=== PATIENT | male | born 2000 | race Caucasian/White ===

== ENCOUNTER 2024-02-25 10:51 | Emergency (ER) | payer OTHER, SELFPAY ==
[2024-02-25 10:52] VITALS: BP 152/92; PULSE 78; RESP 16; TEMP 36.7; O2SAT 97; BMI 27.0
--- NOTE | 2024-02-25 11:11 | US_ITS ---
STUDY: SCROTUM ULTRASOUND REASON FOR EXAM: Male, 23 years old. left testicle pain TECHNIQUE: Ultrasound evaluation of the scrotum was performed with color Doppler and static johnson-scale imaging. COMPARISON: None. FINDINGS: RIGHT TESTICLE INTRATESTICULAR: There is a normal size of the right testicle. The right testicle measures 5.1 x 3.6 x 2.6 cm. There is a heterogeneous echotexture. There is normal arterial and normal venous vascularity. There is no demonstrated right testicular mass or cyst. EXTRATESTICULAR: The epididymis is normal in size. The epididymis head measures 1.2 x 1.0 x 1.3 cm. There is normal vascularity of the epididymis. There is no demonstrated epididymal cystic structure. There is no demonstrated hydrocele. There is no demonstrated varicocele. There is no demonstrated extratesticular mass or cyst. LEFT TESTICLE INTRATESTICULAR: There is a normal size of the left testicle. The left testicle measures 4.5 x 3.9 x 2.4 cm. There is a heterogeneous echotexture. There is normal arterial and normal venous vascularity. There is no demonstrated left testicular mass or cyst. EXTRATESTICULAR: The epididymis is normal in size. The epididymis head measures 1.2 x 1.5 x 0.8 cm. There is normal vascularity of the epididymis. There is no demonstrated epididymal cystic structure. There is a small hydrocele. There is no demonstrated varicocele. There is no demonstrated extratesticular mass. A small simple cyst is present just to the right of midline in the left testicle measuring 1.6 mm in diameter. The echotexture of the bilateral epididymal tissue is diffusely heterogeneous and likely due to prior inflammation or infection. US/Testicular with Arterial Flow IMPRESSION: 1. Findings compatible with sequela of prior and chronic epididymoorchitis = Diffusely heterogeneous echotexture of the bilateral testicles and epididymal tissue likely sequela of prior inflammatory or infectious orchitis not otherwise specified. 2. Small left testicular hydrocele 3. Stable tiny 1.6 mm left testicular cyst of doubtful clinical significance. No mass or suspicious process is present Electronically Signed: Alexander Méndez MD at 13:19 EDT ,
--- NOTE | 2024-02-25 11:11 | CT_ITS ---
STUDY: CT ABDOMEN AND PELVIS WITHOUT CONTRAST REASON FOR EXAM: Male, 23 years old. Left lower abdomen pain TESTICULAR PAIN X5 DAYS RADIATION DOSAGE (If Supplied By Facility): CTDIvol = ( 6.25 ) mGy, DLP = ( 356.27 ) mGycm TECHNIQUE: Transaxial images were obtained from the dome of the diaphragm to the symphysis pubis without oral contrast, and without intravenous contrast. Sagittal and coronal images were reconstructed. Individualized dose optimization techniques were used for this CT. COMPARISON: None. FINDINGS: The visualized lung bases are unremarkable. The visualized portions of the heart are within normal limits. Normal liver. Normal gallbladder and extrahepatic biliary system. Normal spleen. Normal pancreas. Normal bilateral adrenal glands. Normal right kidney. Normal left kidney. No hydronephrosis or radiopaque kidney stones are present. No visualized hydroureter. No bowel dilatation or bowel wall thickening or evidence of obstruction. No free air or free fluid is present. No visualized inflammatory stranding. Normal visualized stomach. Normal small intestine. Normal colon. The appendix is visualized and appears normal. Normal abdominal aorta. Normal inferior vena cava. Normal retroperitoneum. Normal urinary bladder. Normal abdominal wall. Normal osseous structures. A small calcification is present at the periphery of the left testicle. Testicular ultrasound can be performed to evaluate the structures in the scrotal sac. CT/Abdomen/Pelvis without Cont IMPRESSION: 1. Normal unenhanced CT of the abdomen and pelvis. 2. A small calcification is present at the periphery of the left testicle. Testicular ultrasound can be performed to evaluate the structures in the scrotal sac. Electronically Signed: Alexander Méndez MD at 11:51 EDT ,
--- NOTE | 2024-02-25 11:12 | EDS_ITS ---
HPI History of Present Illness Chief Complaint: Male Pain/Injury Detail of Chief Complaint: Left testicle pain Informant: patient Narrative Narrative: Patient presents the emergency department complaint of testicular pain. Patient states initially he noticed the discomfort about 5 days ago. Patient denies any penile discharge. He denies urinary symptoms. Patient states the pain was more severe last evening and was also in his lower abdomen. He had some nausea last night but no vomiting. He denies any fevers or chills or sweats. He denies any trauma to his testicles. No history of kidney stones. He is and monogamous. Patient was seen in urgent care and referred to the emergency department for concern for a testicular torsion. PFSH PFS Home Medications sulfamethoxazole 800 mg-trimethoprim 160 mg tablet (Bactrim DS) 1 tab PO BID #14 tabs 02/25/24 [Rx Last Taken Unknown] Allergy/AdvReac Type Severity Reaction Status Date / Time No Known Allergies Allergy Verified 02/25/24 10:54 Social History Smoking Status: Never smoker ROS ROS ED Review of Systems ROS Unobtainable: other Constitutional Constitutional ED: Reports lethargy; Denies chills, fever(s), sweats or weight loss Eyes Eyes: Denies blurry vision, change in vision or diplopia ENT ENT ED: Denies rhinorrhea or sore throat Cardiovascular Cardiovascular: Denies chest pain, orthopnea or racing heartbeat Respiratory/Chest Respiratory/Chest: Denies cough, dyspnea, dyspnea on exertion, orthopnea or sputum Gastrointestinal Gastrointestinal: Reports abdominal pain; Denies diarrhea, nausea or vomiting Genitourinary Genitourinary ED: Reports other Details: Testicular pain ; Denies dysuria, hematuria or urinary frequency Musculoskeletal Musculoskeletal: Denies arthralgias, back pain, myalgias or neck pain Integumentary Denies abscess, Abrasions or rash Neurologic Neurologic: Denies headache(s) or weakness Psychiatric Psychiatric: Denies anxiety, depression or suicidal thoughts Endocrine Endocrinology: Denies polydipsia, polyphagia or polyuria Hematologic/Lymphatic Hematologic/Lymphatic: Denies easy bleeding, easy bruising or lymphadenopathy Allergic/Immunologic Allergic/Immunologic ED: Denies mouth swelling, tongue swelling or urticaria EXAM Physical Exam Const Vital Signs: 02/25/24 10:52 02/25/24 12:22 Temperature 98.0 F 97 F L Temperature Source Temporal Temporal Pulse Rate 78 64 Respiratory Rate 16 16 Blood Pressure 152/92 H 127/78 H Blood Pressure Mean 112 94 Pulse Ox 97 98 Oxygen Delivery Method Room Air Room Air Positive well nourished and well developed General Appearance ED: well developed and NAD HEENT Reports TM's clear and moist mucous membranes normocephalic and atraumatic; Negative for trauma or tenderness Tympanic Membrane ED: Yes TM's clear Eyes PERRL and EOMs intact bilaterally General Eye ED: Negative for pale conjunctiva or scleral icterus Neck no lymphadenopathy, supple and no JVD General: Negative for tenderness Chest Wall inspection of chest normal and palpation of chest normal Chest: Negative for tenderness Resp normal respiratory effort and clear to auscultation bilaterally Effort and Inspection: Negative for respiratory distress or pain with movement Auscultation: Negative for rhonchi, wheezes or diminished lung sounds Cardio regular rate, regular rhythm, S1 normal heart sound, S2 normal heart sound and no murmurs Peripheral Pulses: pulses 2+ throughout GI normal to inspection, nondistended, normoactive bowel sounds, soft to palpation, non-tender, non-distended and no masses Narrative: Patient is a circumcised male. With some tenderness over the left testicle superior anterior aspect. Normal lie. Normal cremasteric reflex. Mild diffuse tenderness over the epididymis on the left and right. No masses or swellings noted. There is no erythema or cellulitic changes to the scrotum. Back/Spine no CVA tenderness and no thoracic nor lumbar tenderness Extremity normal to inspection General Extremety ED: Negative for edema General Extremity: Negative for edema Neuro oriented x3, CN's II-XII intact bilaterally, no sensory deficits noted and gait normal Sensorium / Orientation: awake, alert, oriented to person, oriented to place and oriented to time Motor Exam: strength 5/5 throughout and strength abnormal Psych mental status grossly normal Skin no rashes or lesions noted and no wounds MDM MDM MDM Narrative Medical decision making narrative: Patient presents with testicle pain x 5 days. In the differential would be epididymitis versus orchitis versus torsion which I feel is less likely given his exam. Patient had a CT scan of the abdomen pelvis to rule out kidney stone or possible hernia. This was unremarkable. He did have a calcification noted over the left testicle and it was recommended we obtain an ultrasound of the testicles. I did order a testicular ultrasound with color flow and this showed evidence of sequela of epididymal orchitis bilaterally. He had a small 1.6 mm cyst over the left testicle. Patient had a small left hydrocele as well. At this point he can be discharged to home. Will start on Bactrim for 7 days to cover any bacterial causes. Will refer to urology for follow-up. Recommended on scrotal support. Lab Data Attestation: I reviewed the patient's lab results. Labs: Laboratory Results - last 24 hr 02/25/24 12:06 Urine Color Yellow Urine Clarity Clear Urine pH 7.0 Ur Specific [place] 1.010 Urine Protein Negative Urine Glucose (UA) Normal Urine Ketones Negative Urine Occult Blood Negative Urine Nitrite Negative Urine Bilirubin Negative Urine Urobilinogen Normal Ur Leukocyte Esterase Negative Urine RBC 0 SEEN Urine WBC 0 SEEN Ur Squamous Epith Cells 0 SEEN Urine Bacteria 0 SEEN Urine Mucus 0 SEEN Radiography Diagnostic Testing: Clinical Impression(s) from Imaging Studies Abdomen/Pelvis CT 02/25/24 11:11 IMPRESSION: 1. Normal unenhanced CT of the abdomen and pelvis. 2. A small calcification is present at the periphery of the left testicle. Testicular ultrasound can be performed to evaluate the structures in the scrotal sac. Electronically Signed: Alexander Méndez MD at 11:51 EDT , Testicular Ultrasound 02/25/24 11:11 IMPRESSION: 1. Findings compatible with sequela of prior and chronic epididymoorchitis = Diffusely heterogeneous echotexture of the bilateral testicles and epididymal tissue likely sequela of prior inflammatory or infectious orchitis not otherwise specified. 2. Small left testicular hydrocele 3. Stable tiny 1.6 mm left testicular cyst of doubtful clinical significance. No mass or suspicious process is present Electronically Signed: Alexander Méndez MD at 13:19 EDT , Discharge Plan Triage Chief Complaint: Male Pain/Injury ED Provider: Dipti Mckeon Dx/Rx/DC Orders Clinical Impression: Acute epididymitis, Pain in testicle, Hydrocele Instructions: ED Epididymitis, ED Hydrocele, Type Not Specified, ED Testicular Pain, Unclear Cause Prescriptions: New sulfamethoxazole-trimethoprim [Bactrim DS] 800-160 mg tablet 1 tab PO BID Qty: 14 0RF Primary Care Provider: Care Physician,No Primary Referrals: Hadley Michaels MD [Med Staff - Active Staff] - 5-7 Days Care Physician,No Primary [Primary Care Provider] - Disposition Disposition: Home, Self Care
[2024-02-25 12:13] LABS: Bacteria 0 SEEN /hpf (None Seen); Mucous, Urine 0 SEEN /hpf (<or=2+); Red Blood Cells-Urine 0 SEEN /hpf (0-5); Squamous Epithelial Cells - UA 0 SEEN /hpf (0-5); White Blood Cells 0 SEEN /hpf (0-5)
[2024-02-25 12:22] VITALS: BP 127/78; PULSE 64; RESP 16; TEMP 36.1; O2SAT 98
[2024-02-25 12:27] LABS: Color, Urine Yellow (Yellow); Glucose, Dipstick Normal (Normal); Ketone-Dipstick Negative (Negative); Leukocyte Esterase-Dipstick Negative /ul (Negative); Nitrite-Dipstick Negative (Negative); Occult Blood-Urine Negative /ul (Negative); Protein-Dipstick Negative (Negative); Urine Bilirubin Dipstick Negative (Negative); Urine Clarity Clear (Clear); Urine Urobilinogen Normal (Normal)
[2024-02-25 13:59] VITALS: BP 124/64; PULSE 72; RESP 16; TEMP 36.9; O2SAT 99
== END 2024-02-25 14:02 | disposition home or self-care (01) ==
PROVIDERS: Emergency Provider Emergency Medicine; Visit Provider Emergency Medicine
DX: N45.1 Epididymitis (principal); N50.812 Left testicular pain; N43.3 Hydrocele, unspecified
CPT/HCPCS: 74176; 76870; 81001; 93976; 99282; A4216